=== PATIENT | male | born 1975 | race Caucasian/White ===

== ENCOUNTER 2021-02-09 00:01 | Emergency (ER) | payer OTHER, SELFPAY ==
[2021-02-09 00:02] VITALS: BP 127/94; PULSE 79; RESP 15; TEMP 36.4; O2SAT 98; BMI 28.4
--- NOTE | 2021-02-09 00:24 | ED.VISSUMM ---
- ER Visit Summary Date of Service: 02/09/21 Chief Complaint: Right third finger laceration History of Present Illness: The patient is a 46 M who presents with a right third finger laceration. He was at work and he cut his finger on a piece of metal. His last tetanus has been greater than 10 years. He denies any paresthesias or weakness of the finger. No loss of function. He denies any other symptoms. Physical Examination: Vital signs are reviewed. Right hand exam reveals a 1.25 cm laceration on the volar right third finger near the PIP joint. He has full range of motion. His two-point discrimination is normal in that finger. Capillary refills less than 2 seconds. Test Results: None performed Emergency Department Course and Treatment: Patient declines having his tetanus updated. Shur-Clens was used to lyse the area. Lidocaine was used to anesthetize the area locally. 3, 5?0 simple nylon sutures were placed. Patient will have a dressing placed and will have the sutures out in 7 to 10 days. Treatment Plan: [] Disposition: Discharge Impression: Third finger laceration, 1.25 cm Laceration repair This note was generated with [employer] dictation software. It may contain incorrect words, spelling, and punctuation that were not noted in review of the chart prior to signing ED Disposition - Plan for ED Patient: Disposition: Home or Assisted Living Instructions: ED Laceration: All Closures Referrals: NOT,DEFINED [Primary Care Provider] -
[2021-02-09] MEDS: Lidocaine 1% (20 ml mdv) 20 ML Vial INFILT (00:39)
== END 2021-02-09 01:03 | disposition home or self-care (01) ==
LOC: ED 00:57
PROVIDERS: Emergency Provider Emergency Medicine
DX: S61.212A Laceration without foreign body of right middle finger without damage to nail, initial encounter (principal); W26.8XXA Contact with other sharp object(s), not elsewhere classified, initial encounter; Y93.9 Activity, unspecified; Y92.9 Unspecified place or not applicable; Y99.0 Civilian activity done for income or pay; Z72.0 Tobacco use
CPT/HCPCS: 12001; 99283